=== PATIENT | female | born 1950 | race Caucasian/White ===

== ENCOUNTER 2020-01-18 08:23 | Outpatient (CLI) | payer MEDICARE, MEDICAID ==
[2020-01-18 10:05] LABS: ALANINE AMINOTRANSFERASE 25 U/L (12-78); ALBUMIN 4.1 G/DL (3.4-5.0); ALBUMIN/GLOBULIN RATIO 1.2 (1.1-1.5); ALKALINE PHOSPHATASE 73 IU/L (46-116); ANION GAP 8 (8-16); ASPARTATE AMINO TRANSFERASE 13 U/L (10-37); BILIRUBIN,TOTAL 0.4 MG/DL (0.1-1.0); BLOOD UREA NITROGEN 21 MG/DL (7-18); BUN/CREATININE RATIO 20.2 (6.6-38.0); CALCIUM 9.7 MG/DL (8.5-10.1); CHLORIDE 104 MMOL/L (99-107); CHOL/HDL RATIO 4.4 (0.00-4.99); CHOLESTEROL 222 MG/DL (0-200); CREATININE 1.04 MG/DL (0.40-0.90); HDL CHOLESTEROL 51 MG/DL (35-60); LDL CHOLESTEROL 144 MG/DL (50-100); POTASSIUM 3.9 MMOL/L (3.5-5.1); SODIUM 138 MMOL/L (135-145); TOTAL CARBON DIOXIDE 25.7 MMOL/L (24-32); TOTAL PROTEIN 7.6 G/DL (6.4-8.2); TRIGLYCERIDES 156 MG/DL (20-135); eGFR 53 ML/MIN
[2020-01-18 10:15] LABS: GLUCOSE 109 MG/DL (70-104)
== END 2020-01-18 23:59 | disposition home or self-care (01) ==
LOC: LAB 08:23
PROVIDERS: ATTEND Nurse Practitioner Family
DX: I70.1 Atherosclerosis of renal artery (principal); I10 Essential (primary) hypertension
CPT/HCPCS: 36415; 80053; 80061

== ENCOUNTER 2020-03-29 09:32 | Outpatient (CLI) | payer MEDICARE, MEDICAID ==
[2020-03-29 10:43] LABS: ALANINE AMINOTRANSFERASE 29 U/L (12-78); ALBUMIN 4.1 G/DL (3.4-5.0); ALBUMIN/GLOBULIN RATIO 1.2 (1.1-1.5); ALKALINE PHOSPHATASE 70 IU/L (46-116); ASPARTATE AMINO TRANSFERASE 21 U/L (10-37); BILIRUBIN,TOTAL 0.2 MG/DL (0.1-1.0); TOTAL PROTEIN 7.6 G/DL (6.4-8.2)
[2020-03-30 12:44] LABS: HBSAG SCREEN Negative (Negative); HEP B CORE AB, TOT Negative (Negative)
== END 2020-03-29 23:59 | disposition home or self-care (01) ==
LOC: LAB 09:32
PROVIDERS: ATTEND Physician Assistant
DX: R74.8 Abnormal levels of other serum enzymes (principal)
CPT/HCPCS: 36415; 80076; 82330; 83516; 83970; 86704; 87340

== ENCOUNTER 2020-05-07 09:04 | Outpatient (CLI) | payer MEDICARE, MEDICAID | END 2020-05-07 23:59 | disposition home or self-care (01) | LOC: LAB 09:04 | DX: E83.51 Hypocalcemia (principal) | CPT/HCPCS: 36415; 82306; 82310 ==

== ENCOUNTER 2020-07-19 08:59 | Outpatient (CLI) | payer MEDICARE, MEDICAID ==
[2020-07-19 10:11] LABS: ALANINE AMINOTRANSFERASE 24 U/L (12-78); ALBUMIN 3.8 G/DL (3.4-5.0); ALKALINE PHOSPHATASE 87 IU/L (46-116); ASPARTATE AMINO TRANSFERASE 15 U/L (10-37); BILIRUBIN,TOTAL 0.3 MG/DL (0.1-1.0); TOTAL PROTEIN 7.5 G/DL (6.4-8.2)
[2020-07-19 10:16] LABS: BILIRUBIN,DIRECT 0.1 MG/DL (0-0.3)
[2020-07-19 10:29] LABS: CHOL/HDL RATIO 4.1 (0.00-4.99); CHOLESTEROL 223 MG/DL (0-200); HDL CHOLESTEROL 55 MG/DL (35-60); LDL CHOLESTEROL 132 MG/DL (50-100); TRIGLYCERIDES 232 MG/DL (20-135)
== END 2020-07-19 23:59 | disposition home or self-care (01) ==
LOC: LAB 08:59
PROVIDERS: ATTEND Internal Medicine Interventional Cardiology
DX: Z01.810 Encounter for preprocedural cardiovascular examination (principal); I10 Essential (primary) hypertension; I70.1 Atherosclerosis of renal artery; R06.02 Shortness of breath; R53.83 Other fatigue; I27.20 Pulmonary hypertension, unspecified; I35.1 Nonrheumatic aortic (valve) insufficiency; Z87.891 Personal history of nicotine dependence
CPT/HCPCS: 36415; 80061; 80076

== ENCOUNTER 2021-02-26 08:42 | Outpatient (CLI) | payer MEDICARE, MEDICAID | END 2021-02-26 23:59 | disposition home or self-care (01) | LOC: RAD 08:42 | PROVIDERS: ATTEND Physician Assistant | DX: M51.35 Other intervertebral disc degeneration, thoracolumbar region (principal); M47.816 Spondylosis without myelopathy or radiculopathy, lumbar region; M41.86 Other forms of scoliosis, lumbar region; Z90.49 Acquired absence of other specified parts of digestive tract | CPT/HCPCS: 72110 ==

== ENCOUNTER 2024-10-14 08:13 | Outpatient (CLI) | payer MEDICARE, MEDICAID ==
--- NOTE | 2024-10-14 09:56 | RADIOLOGY REPORT ---
CLINICAL INDICATION: PAIN IN LEFT HIP COMPARISON: None TECHNIQUE: Multiplanar, multi-sequence MRI of the left hip was performed without intravenous contrast. The contralateral hip is included on some of the sequences. Contrast: None INTERPRETATION: Bones, joints, articular cartilage: No evidence of acute fracture or bone marrow edema. No avascular necrosis. Mild left hip joint space narrowing. There is trace left hip joint effusion. No full-thickn ess chondral defect in the left hip. Alignment is within normal limits Large [id number] images inc lude the right hip which appears to be grossly on remarkable but only assessed on T1 weighted images. Tendons, muscles and bursae: There is full-thickness tear involving the anterior fibers of gluteus me dius. The gluteus medius posterior tendon demonstrates tendinosis but is not torn. There is full-thi ckness tear of gluteus minimus. Regional muscles are normal in size and signal characteristics. Trace fluid in the trochanteric bursa. Acetabular labrum: There is a linear T2 hyperintensity suspicious for tear of the anterior superior a cetabular labrum. Other: Sigmoid diverticulosis without acute diverticulitis. IMPRESSION: 1. 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 2. Full-thickness tear of the left gluteus minimus and anterior gluteus medius tendon. 3. Suspect tear of the anterior superior left acetabular labrum.
== END 2024-10-14 23:59 | disposition home or self-care (01) ==
LOC: MRI02 08:13
PROVIDERS: ATTEND Pain Medicine Pain Medicine
DX: S76.012A Strain of muscle, fascia and tendon of left hip, initial encounter (principal); M25.552 Pain in left hip; X58.XXXA Exposure to other specified factors, initial encounter; Y93.89 Activity, other specified; Y92.89 Other specified places as the place of occurrence of the external cause; Y99.8 Other external cause status
CPT/HCPCS: 73721